=== PATIENT | male | born 1960 | race Caucasian/White ===

== ENCOUNTER 2022-07-02 07:44 | Outpatient (REF) | payer BC, SELFPAY ==
[2022-07-02 10:57] LABS: MANUAL DIFF FLAG NO
[2022-07-02 11:03] LABS: Basophils Percent Auto 0.5 % (0-2); Eosinophils Absolute Auto 0.2 X10*3/uL (0.0-0.4); Eosinophils Percent Auto 4.3 % (0-4); Hemoglobin 15.8 g/dl (14.0-18.0); Imm Gran Abs Auto 0.02 X10*3/uL (0.00-0.03); Imm Gran Pct Auto 0.4 % (0.0-0.4); Lymphocytes Absolute Auto 2.1 X10*3/uL (1.2-4.9); Mean Corpuscular HGB Conc 32.2 g/dl (31.0-36.0); Mean Corpuscular Hemoglobin 27.5 pg (27.0-33.0); Mean Corpuscular Volume 85.4 fL (80.0-98.0); Mean Platelet Volume 11.5 fL (9.4-12.4); Monocytes Absolute Auto 0.5 X10*3/uL (0.1-1.2); Monocytes Percent Auto 9.5 % (2-11); Neutrophils Absolute Auto 2.7 x10*3/uL (2.0-8.3); Neutrophils Percent Auto 47.3 % (45-73); Platelet Count 190 X10*3/uL (160-400); Red Blood Count 5.74 X10*6/uL (4.60-5.80); Red Cell Distribution Width 14.1 % (11.0-16.0); White Blood Count 5.6 X10*3/uL (4.8-10.8)
[2022-07-02 11:43] LABS: Alanine Aminotransferase 23 U/L (0-40); Albumin Level 4.6 g/dL (3.5-5.0); Alkaline Phosphatase 54 U/L (39-117); Anion Gap 12 (12-20); Aspartate Amino Transferase 21 U/L (5-37); Bilirubin Total 0.7 mg/dL (0.0-1.0); Blood Urea Nitrogen 20 mg/dL (9-16); Calcium 9.5 mg/dL (8.4-10.2); Carbon Dioxide 28 mmol/L (22-29); Chloride 107 mmol/L (96-108); Cholesterol 230 mg/dL; Estimated Glomerular Filt Rate > 60; Glucose Fasting 96 mg/dL (60-99); HDL Cholesterol 44 mg/dL; LDL Cholesterol Calculated 156 mg/dl; Potassium 4.1 mmol/L (3.3-5.1); Sodium 143 mmol/L (135-145); Total Protein 6.9 g/dL (6.5-8.0); Triglycerides 154 mg/dL
[2022-07-02 12:00] LABS: Appearance Urine Turbid; Color Urine Yellow; Glucose Urine UA Negative (Negative); Leukocyte Esterase Urine Negative (Negative); Nitrite Urine Negative (Negative); PH 5.5 (5.0-9.0); Specific Gravity - Urine 1.025 (1.005-1.025); Urine Blood Negative (Negative); Urine Ketones Negative (Negative); Urine Protein Negative (Neg-Trace)
[2022-07-02 12:01] LABS: Prostate Specific Antigen Scr 0.77 ng/mL (<0.05-4.0); TSH reflex Free T4 1.09 uIU/mL (0.32-4.0)
[2022-07-02 12:41] LABS: Creatinine Urine 280.26 mg/dL
== END 2022-07-02 07:45 | disposition home or self-care (01) ==
LOC: HO.WFDLDS 07:44
PROVIDERS: Visit Provider Family Medicine
DX: Z00.00 Encounter for general adult medical examination without abnormal findings (principal); I10 Essential (primary) hypertension; Z12.5 Encounter for screening for malignant neoplasm of prostate
CPT/HCPCS: 36415; 80053; 80061; 81003; 82043; 84153; 84443; 85025

== ENCOUNTER 2023-01-14 08:01 | Outpatient (REF) | payer BC, SELFPAY ==
[2023-01-14 12:28] LABS: Anion Gap 11 (12-20); Blood Urea Nitrogen 14 mg/dL (9-16); Calcium 9.8 mg/dL (8.4-10.2); Carbon Dioxide 28 mmol/L (22-29); Chloride 104 mmol/L (96-108); Cholesterol 199 mg/dL (<200); Estimated Glomerular Filt Rate > 60; Glucose Fasting 87 mg/dL (60-99); HDL Cholesterol 48 mg/dL (>40); LDL Cholesterol Calculated 127 mg/dL (<100); Potassium 4.2 mmol/L (3.3-5.1); Sodium 139 mmol/L (135-145); Triglycerides 123 mg/dL (<150)
== END 2023-01-14 08:02 | disposition home or self-care (01) ==
LOC: HO.WFDLDS 08:01
PROVIDERS: Visit Provider Family Medicine
DX: Z00.00 Encounter for general adult medical examination without abnormal findings (principal); E78.00 Pure hypercholesterolemia, unspecified
CPT/HCPCS: 36415; 80048; 80061

== ENCOUNTER 2023-01-21 15:25 | Outpatient (AMB) | payer BC, SELFPAY ==
[2023-01-21 15:28] VITALS: BP 122/72; PULSE 98; O2SAT 95; BMI 25.5
--- NOTE | 2023-01-21 15:28 | A.OFFPC_ITS ---
Vital Signs 01/21/23 15:28 Height 5 ft 5 in Weight 153 lb 6 oz BMI 25.5 BP 122/72 Blood Pressure Location Lt brachial Position Sitting Pulse 98 Pulse Source Pulse Oximeter Pulse Oximetry (%) 95 Oxygen Delivery Method Room Air Intake Visit Reasons: f/u hypercholesterolemia Intake Note: Patient is here to follow up on his cholesterol today. Allergies No Known Allergies Allergy (Verified 01/21/23 15:33) Tobacco use date assessed: 01/21/23 Fall risk assessment: No Falls in past year Last assessed Fall Risk: 01/21/23 Dental Screening Dental Screen Date: 01/21/23 Did you have a dental visit in the last 12 months?: Yes Did you have a dental problem in the last 6 months where you did not have access to dental care?: No Was dental information given to patient?: Patient has dentist HPI f/u hypercholesterolemia HPI Details 62 y/o male presents to f/u hyperlipidem ia. Had advised lifestyle changes. Labs were drawn 01/14/23. Reviwed labs with pt. Triglycerides improved from 154 to 123. TC 230 to 199. LDL 156 to 127. HDL 48. Pt reports he had made changes to his diet. 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 Current occupational exposures/hazards: No Cognitive needs: No Hearing needs: No Vision needs: No Questionnaire Thrive Questionnaire Date Thrive assessed: 06/30/22 MORGAN-7 AMB Questionnaire MORGAN-7 Date MORGAN - 7 assessed: 06/30/22 Source: Developed by Drs. Adrian Sullivan, Lindsey Gallo, Eduard Moreno and colleagues, with an educational mario alberto from [employer]. Physical exam (Primary Care) Vital Signs: Last Vital Signs Pulse 98 01/21/23 15:28 BP 122/72 01/21/23 15:28 Pulse Ox 95 01/21/23 15:28 Oxygen Delivery Method Room Air 01/21/23 15:28 BMI result Body Mass Index 25.5 Tobacco/Smoking Status: Tobacco use Status Tobacco use date assessed 01/21/23 01/21/23 15:36 Patient Tobacco Use Status Never used Tobacco 01/21/23 15:36 e-Cigarette/Vaping Use Never Used 01/21/23 15:36 Thrive Assessment: Date of Thrive Assessment Date Thrive assessed 06/30/22 01/21/23 15:36 Assessment and Plan Assessment & Plan (1) Hypercholesterolemia: Code(s): E78.00 - Pure hypercholesterolemia, unspecified Plan: Patient has a work on lifestyle changes and his cholesterol levels are all within normal limits. Encouraged him to continue lifestyle changes including a diet low in saturated fats and cholesterol and including exercise and weight control We can follow this (2) Screening for colon cancer: Code(s): Z12.11 - Encounter for screening for malignant neoplasm of colon Plan: Referred patient to [facility] [place] for screening for colon cancer follow- up but he was never contacted. Resubmit id referral and I have asked the office to check on the status of the referral. Orders: Orders Lipid Panel Today Z00.00 - Encounter for general adult medical examination without abnormal findings Comprehensive [place]. Panel Fast Today Z00.00 - Encounter for general adult medical examination without abnormal findings Microalbumin, Random (w Creat) Today I10 - Essential (primary) hypertension Prostate Specific Antigen Scr Today Z12.5 - Encounter for screening for malignant neoplasm of prostate UA and rflx microscopic Today Z00.00 - Encounter for general adult medical examination without abnormal findings TSH reflex Free T4 Today Z00.00 - Encounter for general adult medical examinat ion without abnormal findings Referrals Gastroenterology Referral Z12.11 - Encounter for screening for malignant neoplasm of colon Coding Level of Care Code Est Pt Level 3 (55176) Diagnoses Hypercholesterolemia E78.00 Screening for colon cancer Z12.11
== END 2023-01-21 15:57 | disposition home or self-care (01) ==
PROVIDERS: PCP Family Medicine; Visit Provider Family Medicine
DX: E78.00 Pure hypercholesterolemia, unspecified (principal); Z12.11 Encounter for screening for malignant neoplasm of colon
CPT/HCPCS: 99213

== ENCOUNTER 2023-10-21 07:38 | Outpatient (REF) | payer BC, SELFPAY ==
[2023-10-21 11:35] LABS: Appearance Urine Clear; Color Urine Yellow; Glucose Urine UA Negative (Negative); Leukocyte Esterase Urine Negative (Negative); Nitrite Urine Negative (Negative); Urine Blood Negative (Negative); Urine Ketones Negative (Negative); Urine Protein Negative (Neg-Trace)
[2023-10-21 11:50] LABS: Alanine Aminotransferase 20 U/L (0-40); Albumin Level 4.4 g/dL (3.5-5.0); Alkaline Phosphatase 58 U/L (39-117); Anion Gap 13 (12-20); Aspartate Amino Transferase 21 U/L (5-37); Bilirubin Total 0.8 mg/dL (0.0-1.0); Blood Urea Nitrogen 14 mg/dL (9-16); Calcium 9.3 mg/dL (8.4-10.2); Carbon Dioxide 28 mmol/L (22-29); Chloride 106 mmol/L (96-108); Cholesterol 201 mg/dL (<200); Estimated Glomerular Filt Rate > 60; Glucose Fasting 93 mg/dL (60-99); HDL Cholesterol 41 mg/dL (>40); LDL Cholesterol Calculated 127 mg/dL (<100); Sodium 143 mmol/L (135-145); Total Protein 7.1 g/dL (6.5-8.0); Triglycerides 165 mg/dL (<150)
[2023-10-21 11:59] LABS: Prostate Specific Antigen Scr 0.87 ng/mL (<0.05-4.0)
[2023-10-21 12:06] LABS: TSH reflex Free T4 1.26 uIU/mL (0.32-4.0)
[2023-10-21 12:11] LABS: Creatinine Urine 156.53 mg/dL; Microalbum/Creatinine Ratio Ur 4.4 ug/mg cr (<30)
== END 2023-10-21 07:39 | disposition home or self-care (01) ==
LOC: HO.WFDLDS 07:38
PROVIDERS: Visit Provider Family Medicine
DX: Z00.00 Encounter for general adult medical examination without abnormal findings (principal); I10 Essential (primary) hypertension; Z12.5 Encounter for screening for malignant neoplasm of prostate
CPT/HCPCS: 36415; 80053; 80061; 81003; 82043; 82570; 84153; 84443

== ENCOUNTER 2023-11-05 08:11 | Outpatient (AMB) | payer BC, SELFPAY ==
--- NOTE | 2023-11-05 08:14 | A.OFFPC_ITS ---
Vital Signs 11/05/23 08:19 11/05/23 09:01 Height 5 ft 4.37 in Weight 158 lb 4 oz BMI 26.8 BP 124/88 120/84 Blood Pressure Location Rt brachial Position Sitting Respiration 14 Pulse 79 Pulse Source Pulse Oximeter Temp 99 F Temp Source Oral Pulse Oximetry (%) 98 Oxygen Delivery Method Room Air Intake Visit Reasons: PE Intake Note: Physical Web Consultant Required: No Allergies No Known Allergies Allergy (Verified 11/05/23 08:14) Medication List - Last Reconciled 11/05/23 by MICAELA Cee clotrimazole-betamethasone 1-0.05 % 1 appl topical BID 2 weeks Tobacco use date assessed: 11/05/23 Fall risk assessment: No Falls in past year Last assessed Fall Risk: 11/05/23 Dental Screening Dental Screen Date: 11/05/23 Did you have a dental visit in the last 12 months?: Yes Did you have a dental problem in the last 6 months where you did not have access to dental care?: No Was dental information given to patient?: Patient has dentist HPI HPI Comments History of Present Illness Details This is a 63-year-old male with a past medical history of hypercholesterolemia presenting for his physical exam. We reviewed his lab results. He has hypercholesterolemia. LDL 127, triglycerides 165. LDL is improved from 2022 when it was 156. He did this by incorporating more fiber into his diet. We reviewed his 10 year ASCVD risk score which is elevated at 13.6%. His diastolic blood pressure was mildly elevated today at 84. We discussed a low-sodium diet and incorporating cardiovascular exercise into his routine and avoiding caffeine. He did have caffeine before this appointment. He says balanitis occasionally flares, and the topical cream prescribed by his PCP is effective. He has a consult for a screening colonoscopy scheduled in March. 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 Current occupational exposures/hazards: No Cognitive needs: No Hearing needs: No Vision needs: No Questionnaire PHQ-9 Over the last 2 weeks, how often have you been bothered by any of the following problems? 1. Little interest or pleasure in doing things: not at all 2. Feeling down, depressed, or hopeless: not at all 3. Trouble falling or staying asleep, or sleeping too much: not at all 4. Feeling tired or having little energy: not at all 5. Poor appetite or overeating: not at all 6. Feeling bad about yourself - or that you are a failure or have let yourself or your family down: not at all 7. Trouble concentrating on things, such as reading the newspaper or watching television: not at all 8. Moving or speaking so slowly that other people could have noticed. Or the opposite - being so fidgety or restless that you have been moving around a lot more than usual: not at all 9. Thoughts that you would be better off or of hurting yourself in some way: not at all Total score: 0 Depression Screening Interpretation: Negative Depression Screening Done: Yes 33814 - PHQ-9 Billing: Yes Source: Developed by Drs. Adrian Sullivan, Lindsey Gallo, Eduard Moreno and colleagues, with an educational mario alberto from [employer]. Thrive Questionnaire Date Thrive assessed: 06/30/22 I am a: Patient What is your living situation today?: I have a steady place to live Within the past 12 months, did the food you bought not last and you didn't have the money to get more?: Never true Within the past 12 months, did you worry whether your food would run out before you got money to buy more?: Never true Do you have trouble paying for medicines?: No Do you have trouble getting transportation to medical appointments?: No Do you have trouble paying your heating and electricity bill?: No Do you have trouble taking care of your child, family member or friend?: No Do you have trouble with day-to-day activities such as bathing, preparing meals, shopping, managing finances, etc.?: No Are you currently unemployed and looking for a job?: No Are you interested in more education?: No Please select the resources that you would like help with: None Currently or been in a relationship where the following occur: no concerns reported THRIVE Score: 0 AUDIT C Alcohol Use Questionnaire (AUDIT-C) 1. How often do you have a drink containing alcohol?: Monthly or less (every 3-4 months) 2. How many drinks containing alcohol do you have on a typical day when you are drinking?: 1 or 2 3. How often do you have six or more drinks on one occasion?: Never Total Score: 1 MORGAN-7 AMB Questionnaire MORGAN-7 Date MORGAN - 7 assessed: 11/05/23 Feeling nervous, anxious, or on edge: 0 = Not at all Not being able to stop or control worryin = Not at all Worrying too much about different things: 0 = Not at all Trouble relaxin = Not at all Being so restless that it is hard to sit still: 0 = Not at all Becoming easily annoyed or irritable: 0 = Not at all Feeling afraid as if something awful might happen: 0 = Not at all Total MORGAN-7 score (0-4 normal; 5-9 mild; 10-14 moderate; 15-21 severe): 0 Source: Developed by Drs. Adrian Sullivan, Lindsey Gallo, Eduard Moreno and colleagues, with an educational mario alberto from [employer]. MORGAN-7 Assessment Billing MORGAN-7 Assessment Tool: MORGAN-7 Assessment 76033 Review of Systems Const Details: Constitutional: No unexplained weight loss, fever, chills, fatigue or night sweats. Eyes: No vision changes, blurry vision, double vision, eye pain, eye redness, eye discharge. ENT: No hearing loss, sneezing, congestion, runny nose or sore throat. Respiratory: No shortness of breath, cough or sputum production. Cardiovascular: No chest pain, chest pressure or chest discomfort. No palpitations or pedal edema. Gastrointestinal: No anorexia, nausea, vomiting or diarrhea. No abdominal pain or blood in stool. Genitourinary: No dysuria, hematuria, urinary frequency. Neurologic: No persistent headache, dizziness, syncope, unilateral weakness, ataxia, numbness or tingling in the extremities. Musculoskeletal: No muscle pain, back pain, joint pain or swelling. Hematologic/Lymphatics: No bleeding or bruising. No painful lymph nodes. Skin: No itching or rashes. Endocrine: No cold or heat intolerance. No polyuria or polydipsia. Psychiatric: No depression or anxiety. No SI/HI. Physical exam (Primary Care) Vital Signs: Last Vital Signs Temp 99 F 06/21/24 08:19 Pulse 79 11/05/23 08:19 Resp 14 11/05/23 08:19 BP 120/84 11/05/23 09:01 Pulse Ox 98 11/05/23 08:19 Oxygen Delivery Method Room Air 11/05/23 08:19 BMI result Body Mass Index 26.8 Tobacco/Smoking Status: Tobacco use Status Tobacco use date assessed 11/05/23 11/05/23 08:17 Patient Tobacco Use Status Never used Tobacco 11/05/23 08:17 e-Cigarette/Vaping Use Never Used 11/05/23 08:17 PHQ-9: PHQ-9 Score PHQ-9: Total score 0 11/05/23 08:35 Depression Screening Interpretation: Negative Thrive Assessment: Date of Thrive Assessment Date Thrive assessed 06/30/22 11/05/23 08:17 Currently or been in a relationship where the following occur: no concerns reported Const Other: Constitutional: Alert, in no distress. Head: Normocephalic. Eyes: Pupils are equal, round and reactive to light. Extraocular muscles intact. Ear, Nose and Throat: Canals clear. TMs normal. Normal nasal mucosa. No nasal discharge. No oral lesions. Neck: Supple, Full range of motion. No lymphadenopathy. No palpable thyroid masses. Respiratory: Clear to auscultation. Cardiovascular: S1 S2 regular. No murmurs. No carotid bruits. Gastrointestinal: Abdomen soft, non-tender, non-distended. Normal bowel sounds. No palpable masses. Genitourinary: Patient deferred. Neurologic: No focal neurological deficits. Symmetric patellar reflexes. Moves all extremities spontaneously. Sensation intact bilaterally. Skin: There are a few dry, scaly lesions on the forearms. Musculoskeletal: No gross deformities. Normal range of motion. Extremities: Warm and well perfused. No clubbing, cyanosis or edema. 3+ peripheral pulses bilaterally. Psychiatric: Normal mood and affect Assessment and Plan Assessment & Plan (1) Annual physical exam: Code(s): Z00.00 - Encounter for general adult medical examination without abnormal findings Plan: Patient is seen today for a routine physical. As part of this visit we reviewed the following issues, which are considered and essential part of preventative health in this age group: - Screening for colon cancer - Discussed Prostate cancer screening - Blood pressure screening annually - Cholesterol screening - Nutritional and exercise counseling - Counseling of injury prevention including fire prevention, smoke alarms and seat belt usage - Screening for depression - Prevention of and/or testing for infectious diseases - Education about skin cancer - Referred to dermatology for skin exam. - Recommendations about immunizations - given Prevnar-20 in office. - Recommendation of an eye exam - Screening for substance abuse Follow up in 1 year for physical exam. (2) Hypercholesterolemia: Code(s): E78.00 - Pure hypercholesterolemia, unspecified Plan: Reviewed elevated ASCVD risk score with the patient. Recommended initiating statin to reduce cholesterol and cardiovascular risk. Discussed risks and benefits. Patient declines cholesterol lowering medication at this time. He will continue to work on lifestyle modifications were which were reviewed in detail with the patient. Orders: Orders Pneumococcal 20 Immunization Today Z23 - Encounter for immunization Referrals Dermatology Referral Z12.83 - Encounter for screening for malignant neoplasm of skin Medications: New pneumoc 20-elfego conj-dip cr(PF) 0.5 mL IM ONCE 0.5 mL 0RF Z23 - Encounter for immunization Refilled clotrimazole-betamethasone 1-0.05 % 1 appl topical BID 2 weeks 45 grams 1RF Coding Level of Care Code Est Pt Prev Care >65y(62389) Diagnoses Annual physical exam Z00.00 Hypercholesterolemia E78.00 Additional Codes MORGAN-7 Assessment Billing - MORGAN-7 Assessment Tool: MORGAN-7 Assessment 28944 ([id number])
[2023-11-05 08:19] VITALS: BP 124/88; PULSE 79; RESP 14; TEMP 37.2; O2SAT 98; BMI 26.8
[2023-11-05 09:01] VITALS: BP 120/84
== END 2023-11-05 09:10 | disposition home or self-care (01) ==
PROVIDERS: PCP Family Medicine; Visit Provider Physician Assistant Medical
DX: Z00.00 Encounter for general adult medical examination without abnormal findings (principal); E78.00 Pure hypercholesterolemia, unspecified; Z23 Encounter for immunization
CPT/HCPCS: 90471; 90677; 99397

== ENCOUNTER 2025-01-08 14:36 | Outpatient (AMB) | payer BC, SELFPAY ==
--- NOTE | 2025-01-08 14:43 | A.OFFVIS_ITS ---
Intake Vital Signs 01/08/25 14:46 Height 5 ft 5 in Weight 158 lb BMI 26.3 BP 142/78 H Blood Pressure Location Lt brachial Position Sitting Respiration 13 Pulse 86 Pulse Source Pulse Oximeter Temp 97 F Temp Source Oral Pulse Oximetry (%) 96 Oxygen Delivery Method Room Air Intake Visit Reasons: Physical / Dr. Dimas pt. 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 Current occupational exposures/hazards: No Cognitive needs: No Hearing needs: No Vision needs: No Questionnaire PHQ-9 Over the last 2 weeks, how often have you been bothered by any of the following problems? 1. Little interest or pleasure in doing things: not at all 2. Feeling down, depressed, or hopeless: not at all 3. Trouble falling or staying asleep, or sleeping too much: not at all 4. Feeling tired or having little energy: not at all 5. Poor appetite or overeating: not at all 6. Feeling bad about yourself - or that you are a failure or have let yourself or your family down: not at all 7. Trouble concentrating on things, such as reading the newspaper or watching television: not at all 8. Moving or speaking so slowly that other people could have noticed. Or the opposite - being so fidgety or restless that you have been moving around a lot more than usual: not at all 9. Thoughts that you would be better off or of hurting yourself in some way: not at all Total score: 0 Depression Screening Interpretation: Negative Depression Screening Done: Yes 62424 - PHQ-9 Billing: Yes Source: Developed by Drs. Adrian Sullivan, Lindsey Gallo, Eduard Moreno and colleagues, with an educational mario alberto from [employer]. Physical Exam Vital Signs: Last Vital Signs Temp 97 F 01/08/25 14:46 Pulse 86 01/08/25 14:46 Resp 13 01/08/25 14:46 BP 142/78 H 01/08/25 14:46 Pulse Ox 96 01/08/25 14:46 Oxygen Delivery Method Room Air 01/08/25 14:46 BMI result Body Mass Index 26.3 Quality Reporting (2019) Depression/Bipolar (159/160/161/177) PHQ-9: Total score: 0 Coding Additional Codes PHQ-9 - 40272 - PHQ-9 Billing: Yes ([id number])
[2025-01-08 14:46] VITALS: BP 142/78; PULSE 86; RESP 13; TEMP 36.1; O2SAT 96; BMI 26.3
--- NOTE | 2025-01-08 15:00 | A.OFFPC_ITS ---
Vital Signs 01/08/25 14:46 01/08/25 15:14 Height 5 ft 5 in Weight 158 lb BMI 26.3 BP 142/78 H 128/58 L Blood Pressure Location Lt brachial Lt brachial Position Sitting Sitting Respiration 13 Pulse 86 Pulse Source Pulse Oximeter Temp 97 F Temp Source Oral Pulse Oximetry (%) 96 Oxygen Delivery Method Room Air Intake Visit Reasons: Physical / Dr. Dimas ptDeb Allergies No Known Allergies Allergy (Verified 01/08/25 14:59) Medication List - Last Reconciled 01/08/25 by Ivania Nj, [facility] clotrimazole-betamethasone 1-0.05 % 1 appl topical BID 2 weeks Tobacco use date assessed: 11/05/23 Dental Screening Dental Screen Date: 11/05/23 HPI HPI Comments History of Present Illness Details 64 y/o M with HLD, balanitis Fhx: No changes Surgery: No changes Health Maintenance: Colon [facility] ____hoping to have this done 01/2025, advised if this doesnt work out will order cologuard Tdap admin today Specialists: Derm; only went one time. Cleared from Optho wears glasses, last exam May 2024 History of Present Illness - The patient is a 64-year-old male pres enting for CPE - c/o sore spot on testicle, feels like pressure, worse w/ tight clothes; started w few months ago w/o any other assoc sx - No skin changes, no pain on testing, n o STDs - HLD not on meds, due for labs Social History - Employment: Patient is currently worki [employer] but anticipates longterm, experiencing stress due to delays in company takeover. - Receives care through a patient portal . - Current medications: Occasional use of a topical cream. - Recent eye examination in May, sta rted using new glasses. Health Maintenance - Tetanus booster due; last recorded mor e than 10 years ago. - Routine labs pending, reminded patient to send message via the portal if the colonoscopy rescheduling fails. - Cologuard option, pending other screen ing results. - Pneumococcal vaccination received last year. - Blood pressure management as previous readings indicate elevated levels. - Upcoming labs and tetanus shot schedul ed for today alongside wellness instructions to follow. Review of Systems - Genitourinary: Reports difficulty find ing left testicle, soreness noticed; denies STDs. - Cardiovascular: Reports history of kristine vated blood pressure. - Gastrointestinal: Discussed past compl ication with colonoscopy; pending follow-up or alternative screen. - Integumentary: Denies skin changes, re cent dermatology visit noted presence of small white spots due to aging. - Musculoskeletal: Last eye exam in [place] sw[place] with new glasses; no major changes in vision. - Neurological: Reports concerns with st ress associated with employment status change. Physical Exam General: Well developed, well nourished, in no acute distress. Appears stated age. Head: Normocephalic, atraumatic. Eyes: Pupils are equal, round and reactive to light and accommodation. Conjunctivae are clear. Vision grossly normal. Ears: TMs clear AU, EACS WNL Nose: Patent, without discharge. Neck: Supple, no adenopathy or thyromegaly. Breast: Edu on SBE Lungs: Clear to auscultation bilaterally. No rales, rhonchi or wheeze noted. Good air flow in all santos. Heart: Regular rate and rhythm. No murmurs, click, rubs or gallops are noted. Abdomen: Bowel sounds present in all quadrants. The abdomen is soft, nontender, with no masses or organomegaly noted. No hernias are noted. : Deferred. Reviewed JANE & recommendations, varicocele appreciated; no testicular mass. Offered and declined mechanical manager. Pulses: Peripheral pulses are equal and palpable bilaterally. Extremities: No clubbing, cyanosis nor edema is noted. Neurologic: Gait and station normal. Cranial Nerves 2-12 intact. Motor strength grossly symmetrical and intact. No sensory loss. Balance normal. Skin: No rashes, ulcers, or lesions noted. Turgor is good. Skin color is good. Hair and nails are without abnormalities. Psych: Normal eye contact, affect and mood appropriate, and normal interactions. Patient is alert and appropriate to context. Results Pending Discussion Notes I discussed the findings of presumed varicocele with the patient, including the need for a confirmatory ultrasound. The likelihood of benign swelling due to varicosities in the scrotum was explained. The absence of alarming skin lesions was emphasized, recommending ultrasound to assess the extent and need for potential intervention. The necessity of routine blood work and administrating a tetanus booster was confirmed. I advised rescheduling for either colonoscopy or Cologuard test, informed the patient of next steps, and utility of patient portal for queries. Chcf-related stress was discussed briefly. Guided on blood pressure management and further monitoring before deciding any therapeutic changes. Patient was advised on following my arranged schedule for laboratory, ultrasound, and tetanus shot. Patient was given time to ask questions. All questions were answered to their satisfaction. Plan Scrotal US Labs today Tdap admin Colorectal screening RTO 2-3 weeks to review labs and US results, then 1 year CPE Patient Instructions - Proceed with labs and tetanus shot as scheduled today. - Await ultrasound for scrotal evaluatio n; - Contact via patient portal if no confi rmation from colonoscopy appointment by January. I can order Cologaurd at that time, if needed. - Maintain current topical treatments fo r the skin as needed. - Follow dietary advice for managing lip ids and monitor cholesterol levels. - Schedule telehealth appt to review lab s and Ultrasound - CPE in 1 year Consent Patient was informed and verbally consented to the use of an ambient scribe for clinic note documentation during this visit. [facility] Social History Housing: House Patient Tobacco Use Status: Never used Tobacco e-Cigarette/Vaping Use: Never Used Second Hand Smoke Exposure: No service: No Current occupational status: employed Current occupation: [employer] in [employer]. Current occupational exposures/hazards: No Cognitive needs: No Hearing needs: No Vision needs: No Questionnaire PHQ-9 Over the last 2 weeks, how often have you been bothered by any of the following problems? 1. Little interest or pleasure in doing things: not at all 2. Feeling down, depressed, or hopeless: not at all 3. Trouble falling or staying asleep, or sleeping too much: not at all 4. Feeling tired or having little energy: not at all 5. Poor appetite or overeating: not at all 6. Feeling bad about yourself - or that you are a failure or have let yourself or your family down: not at all 7. Trouble concentrating on things, such as reading the newspaper or watching television: not at all 8. Moving or speaking so slowly that other people could have noticed. Or the opposite - being so fidgety or restless that you have been moving around a lot more than usual: not at all 9. Thoughts that you would be better off or of hurting yourself in some way: not at all Total score: 0 Depression Screening Interpretation: Negative Depression Screening Done: Yes 31321 - PHQ-9 Billing: Yes Source: Developed by Drs. Adrian Sullivan, Lindsey Gallo, Eduard Moreno and colleagues, with an educational mario alberto from [employer]. Thrive Questionnaire Date Thrive assessed: 01/08/25 I am a: Parent/Caregiver What is your living situation today?: I have a steady place to live Within the past 12 months, did the food you bought not last and you didn't have the money to get more?: Never true Within the past 12 months, did you worry whether your food would run out before you got money to buy more?: Never true Do you have trouble paying for medicines?: No Do you have trouble getting transportation to medical appointments?: No Do you have trouble paying your heating and electricity bill?: No Do you have trouble taking care of your child, family member or friend?: No Do you have trouble with day-to-day activities such as bathing, preparing meals, shopping, managing finances, etc.?: No Are you currently unemployed and looking for a job?: No Are you interested in more education?: No Please select the resources that you would like help with: None Currently or been in a relationship where the following occur: No concerns reported THRIVE Score: 0 AUDIT C Alcohol Use Questionnaire (AUDIT-C) 1. How often do you have a drink containing alcohol?: Never 2. How many drinks containing alcohol do you have on a typical day when you are drinking?: 1 or 2 3. How often do you have six or more drinks on one occasion?: Never Total Score: 0 MORGAN-7 AMB Questionnaire MORGAN-7 Date MORGAN - 7 assessed: 01/08/25 Feeling nervous, anxious, or on edge: 0 = Not at all Not being able to stop or control worryin = Not at all Worrying too much about different things: 0 = Not at all Trouble relaxin = Not at all Being so restless that it is hard to sit still: 0 = Not at all Becoming easily annoyed or irritable: 0 = Not at all Feeling afraid as if something awful might happen: 0 = Not at all Total MORGAN-7 score (0-4 normal; 5-9 mild; 10-14 moderate; 15-21 severe): 0 Source: Developed by Drs. Adrian Sullivan, Lindsey Gallo, Eduard Moreno and colleagues, with an educational mario alberto from [employer]. MORGAN-7 Assessment Billing MORGAN-7 Assessment Tool: MORGAN-7 Assessment 92039 Physical exam (Primary Care) Vital Signs: Last Vital Signs Temp 97 F 01/08/25 14:46 Pulse 86 01/08/25 14:46 Resp 13 01/08/25 14:46 BP 128/58 L 01/08/25 15:14 Pulse Ox 96 01/08/25 14:46 Oxygen Delivery Method Room Air 01/08/25 14:46 BMI result Body Mass Index 26.3 Tobacco/Smoking Status: Tobacco use Status Tobacco use date assessed 11/05/23 01/08/25 15:03 Patient Tobacco Use Status Never used Tobacco 01/08/25 15:03 e-Cigarette/Vaping Use Never Used 01/08/25 15:03 PHQ-9: PHQ-9 Score PHQ-9: Total score 0 01/08/25 15:03 Depression Screening Interpretation: Negative Thrive Assessment: Date of Thrive Assessment Date Thrive assessed 01/08/25 01/08/25 15:03 Currently or been in a relationship where the following occur: No concerns reported Coding Level of Care Code Est Pt Prev Care >65y(65216) Diagnoses Adult general medical exam Z00.00 Hypercholesterolemia E78.00 Laboratory exam ordered as part of routine general medical examination Z00.00 Need for Tdap vaccination Z23 Left testicular pain N50.812 Additional Codes PHQ-9 - 08922 - PHQ-9 Billing: Yes ([id number]) MORGAN-7 Assessment Billing - MORGAN-7 Assessment Tool: MORGAN-7 Assessment [id number] ([id number]) Assessment & Plan Assessment & Plan (1) Adult general medical exam: Onset Date: ~01/08/25 Code(s): Z00.00 - Encounter for general adult medical examination without abnormal findings Category: Medical (2) Hypercholesterolemia: Code(s): E78.00 - Pure hypercholesterolemia, unspecified Category: Medical (3) Laboratory exam ordered as part of routine general medical examination: Code(s): Z00.00 - Encounter for general adult medical examination without abnormal findings Category: Medical (4) Need for Tdap vaccination: Code(s): Z23 - Encounter for immunization Category: Medical (5) Left testicular pain: Code(s): N50.812 - Left testicular pain Category: Medical Plan . Orders: Orders TDaP Immunization Today Z23 - Encounter for immunization Hemoglobin A1c Today Z00.00 - Encounter for general adult medical examination without abnormal findings Lipid Panel Today Z00.00 - Encounter for general adult medical examination without abnormal findings Vitamin D 25-OH Total Today Z00.00 - Encounter for general adult medical examination without abnormal findings US scrotum Today N50.812 - Left testicular pain Complete Blood Count no Diff Today Z00.00 - Encounter for general adult medical examination without abnormal findings Comprehensive Met. Panel Today Z00.00 - Encounter for general adult medical examination without abnormal findings Microalbumin, Random (w Creat) Today Z00.00 - Encounter for general adult medical examination without abnormal findings Prostate Specific Antigen Scr Today Z00.00 - Encounter for general adult medical examination without abnormal findings TSH reflex Free T4 Today Z00.00 - Encounter for general adult medical examination without abnormal findings Vitamin B12 and Folate Today Z00.00 - Encounter for general adult medical examination without abnormal findings Medications: New Boostrix Tdap (diphth,pertus(acell),tetanus) 0.5 mL IM ONCE 0.5 mL 0RF NS Z23 - Encounter for immunization Patient Instructions: Patient Instructions - Proceed with labs and tetanus shot as scheduled today. - Await ultrasound for scrotal evaluation; - Contact via patient portal if no confirmation from colonoscopy appointment by January. I can order Cologaurd at that time, if needed. - Maintain current topical treatments for the skin as needed. - Follow dietary advice for managing lipids and monitor cholesterol levels. - Schedule telehealth appt to review labs and Ultrasound - CPE in 1 year Health screenings for men You should visit your health care provider regularly, even if you feel healthy. The purpose of these visits is to: Screen for medical issues Assess your risk for future medical problems Encourage a healthy lifestyle Update vaccinations and other preventive care services Help you get to know your provider in case of an illness Information Even if you feel fine, you should still see your provider for regular checkups. These visits can help you avoid problems in the future. For example, the only way to find out if you have high blood pressure is to have it checked regularly. High blood sugar and high cholesterol level also may not have any symptoms in the early stages. Simple blood tests can check for these conditions. There are specific times when you should see your provider or receive specific health screenings. The [place] Preventive Services Task Force publishes a list of recommended screenings. Below are screening guidelines for men ages 40 to 64. BLOOD PRESSURE SCREENING Have your blood pressure checked at least once every year. Watch for blood pressure screenings in your area. Ask your provider if you can stop in to have your blood pressure checked. Ask your provider if you need your blood pressure checked more often if: You have diabetes, heart disease, kidney problems, or are overweight or have certain other health conditions You have a first-degree relative with high blood pressure You are Black Your blood pressure top number is from 120 to 129 mm Hg, or the bottom number is from 70 to 79 mm Hg If the top number is 130 mm Hg or greater or the bottom number is 80 mm Hg or greater, this is considered stage 1 hypertension. Schedule an appointment with your provider to learn how you can lower your blood pressure. Effects of age on blood pressure CHOLESTEROL SCREENING Cholesterol screening should begin at age 35 for men with no known risk factors for coronary heart disease. Repeat cholesterol screening should take place: Every 5 years for men with normal cholesterol levels More often if changes occur in lifestyle (including weight gain and diet) More often if you have diabetes, heart disease, kidney problems, or certain other conditions COLORECTAL CANCER SCREENING If you are under age 45, talk to your provider about getting screened. You may need to be screened if you have a strong family history of colon cancer or polyps. Screening may also be considered if you have risk factors such as a history of inflammatory bowel disease or polyps. If you are age 45 to 75, you should be screened for colorectal cancer. There are several screening tests available: A stool-based fecal occult blood (gFOBT) or fecal immunochemical test (FIT) every year A stool sDNA test every 1 to 3 years Flexible sigmoidoscopy every 5 years or every 10 years with stool testing FIT done every year CT colonography (virtual colonoscopy) every 5 years Colonoscopy every 10 years You may need a colonoscopy more often if you have risk factors for colorectal cancer, such as: Ulcerative colitis A personal or family history of colorectal cancer A history of growths in your colon called adenomatous polyps DENTAL EXAM Go to the dentist once or twice every year for an exam and cleaning. Your dentist will evaluate if you have a need for more frequent visits. DIABETES SCREENING All adults who do not have risk factors for diabetes should be screened starting at age 35 and repeated every 3 years. If you have other risk factors for diabetes, such as a first degree relative with diabetes, overweight or obesity, high blood pressure, prediabetes, or a history of heart disease, you may be tested more often. If you are overweight and have other risk factors, such as high blood pressure and are planning to become , screening is recommended. EYE EXAM Have an eye exam every 2 to 4 years ages 40 to 54 and every 1 to 3 years ages 55 to 64. Your provider may recommend more frequent eye exams if you have vision problems or glaucoma risk. Have an eye exam that includes an examination of your retina (back of your eye) at least every year if you have diabetes. IMMUNIZATIONS Commonly needed vaccines include: Flu shot: get one every year COVID-19 vaccine: ask your provider what is best for you Tetanus-diphtheria and acellular pertussis (Tdap) vaccine: have as one of your tetanus-diphtheria vaccines if you did not receive it as an adolescent Tetanus-diphtheria: have a booster (or Tdap) every 10 years Varicella vaccine: receive 2 doses if you never had chickenpox or the varicella vaccine and were born in 1979 or after Hepatitis B vaccine: receive 2, 3, or 4 doses, depending on your exact circumstances, if you did not receive these as a child or adolescent, until age 59 Shingles (herpes zoster) vaccine: at or after age 50 Ask your provider if you should receive other immunizations, especially if you have certain medical conditions, such as diabetes or are at increased risk for some diseases such as pneumonia. INFECTIOUS DISEASE SCREENING Screening for hepatitis C: all adults ages 18 to 79 should get a one-time test for hepatitis C. Screening for human immunodeficiency virus (HIV): all people ages 15 to 65 should get a one-time test for HIV. Depending on your lifestyle and medical history, you may need to be screened for infections such as syphilis, chlamydia, and other infections. LUNG CANCER SCREENING You should have an annual screening for lung cancer with low-dose computed tomography (LDCT) if: You are age 50 to 80 years AND You have a 20 pack-year smoking history AND You currently smoke or have quit within the past 15 years OSTEOPOROSIS SCREENING If you are age 50 to 64 and have risk factors for osteoporosis, you should discuss screening with your provider. Risk factors can include long-term steroid use, low body weight, smoking, heavy alcohol use, having a fracture after age 50, or a family history of hip fracture or osteoporosis. Osteoporosis PHYSICAL EXAM All adults should visit their provider from time to time, even if they are healthy. The purpose of these visits is to: Screen for diseases Assess risk of future medical problems Encourage a healthy lifestyle Update vaccinations and other preventive care services Maintain a relationship with a provider in case of an illness Your height, weight, and body mass index (BMI) should be checked at every exam. During your exam, your provider may ask you about: Depression and anxiety Diet and exercise Alcohol and tobacco use Safety, such as use of seat belts and smoke detectors Your medicines and risk for interactions PROSTATE CANCER SCREENING If you're 55 through 69 years old, before having the test, talk to your provider about the pros and cons of having a PSA test. Ask about: Whether screening decreases your chance of dying from prostate cancer. Whether there is any harm from prostate cancer screening, such as side effects from testing or overtreatment of cancer when discovered. Whether you have a higher risk of prostate cancer than others. If you are age 55 or younger, screening is not generally recommended. You should talk with your provider about if you have a higher risk for prostate cancer. Risk factors include: Having a family history of prostate cancer (especially a brother or father) Being If you choose to be tested, the PSA blood test is repeated over time (yearly or less often), though the best frequency is not known. Prostate examinations are no longer routinely done on men with no symptoms. Prostate cancer SKIN EXAM Your provider may check your skin for signs of skin cancer, especially if you're at high risk. People at high risk include those who have had skin cancer before, have close relatives with skin cancer, or have a weakened immune system. TESTICULAR EXAM The [place] Preventive Services Task Force (USPSTF) now recommends against performing testicular self-exams. Doing testicular self-exams has been shown to have little to no benefit.
[2025-01-08 15:14] VITALS: BP 128/58
== END 2025-01-08 15:35 | disposition home or self-care (01) ==
LOC: HO.HMCFM 14:40
PROVIDERS: PCP Nurse Practitioner Family; Visit Provider Nurse Practitioner Family
DX: Z00.00 Encounter for general adult medical examination without abnormal findings (principal); E78.00 Pure hypercholesterolemia, unspecified; Z23 Encounter for immunization; N50.812 Left testicular pain

== ENCOUNTER 2025-01-08 14:36 | Outpatient (REF) | payer BC, SELFPAY ==
[2025-01-08 17:32] LABS: Hematocrit 46.1 % (42.0-52.0); Hemoglobin 15.5 g/dl (14.0-18.0); Mean Corpuscular HGB Conc 33.6 g/dl (31.0-36.0); Mean Corpuscular Hemoglobin 28.1 pg (27.0-33.0); Mean Corpuscular Volume 83.7 fL (80.0-98.0); NRBC Abs Auto 0.000 X10*3/uL (0.0-0.012); NRBC Pct Auto 0.0 /100WBC (0.0-0.2); Platelet Count 173 X10*3/uL (160-400); Red Blood Count 5.51 X10*6/uL (4.60-5.80); White Blood Count 5.2 X10*3/uL (4.8-10.8)
[2025-01-08 17:46] LABS: Total Hemoglobin (HGBA1C) 4025.0634 umol/L
[2025-01-08 17:56] LABS: Alanine Aminotransferase 31 U/L (0-40); Albumin Level 4.7 g/dL (3.5-5.0); Alkaline Phosphatase 58 U/L (39-117); Anion Gap 13 (12-20); Aspartate Amino Transferase 37 U/L (5-37); Blood Urea Nitrogen 17 mg/dL (9-16); Calcium 9.8 mg/dL (8.4-10.2); Carbon Dioxide 27 mmol/L (22-29); Chloride 104 mmol/L (96-108); Cholesterol 207 mg/dL (<200); Estimated Glomerular Filt Rate > 60; HDL Cholesterol 45 mg/dL (>40); Potassium 3.8 mmol/L (3.3-5.1); Sodium 140 mmol/L (135-145); Total Protein 7.0 g/dL (6.5-8.0); Triglycerides 187 mg/dL (<150)
[2025-01-08 18:31] LABS: Microalbum/Creatinine Ratio Ur 3.9 ug/mg cr (<30)
[2025-01-08 18:31] LABS: Folate 7.9 ng/mL (> or = 4.0); Vitamin B12 319 pg/mL (200-900)
== END 2025-01-08 14:37 | disposition home or self-care (01) ==
LOC: HO.WFDLDS 14:36
PROVIDERS: PCP Nurse Practitioner Family; Visit Provider Nurse Practitioner Family
DX: Z00.00 Encounter for general adult medical examination without abnormal findings (principal); Z23 Encounter for immunization; E78.00 Pure hypercholesterolemia, unspecified; N50.812 Left testicular pain
CPT/HCPCS: 36415; 80053; 80061; 82043; 82306; 82570; 82607; 82746; 83036; 84153; 84443; 85027; 90471; 90715; 96127

== ENCOUNTER 2025-02-02 08:49 | Outpatient (AMB) | payer BC, SELFPAY ==
--- NOTE | 2025-02-02 09:00 | A.OFFPC_ITS ---
Vital Signs 3 02/02/25 09:03 Height 5 ft 5 in Weight 153 lb BMI 25.5 BP 102/66 Blood Pressure Location Rt brachial Position Sitting Respiration 12 Pulse 65 Pulse Source Pulse Oximeter Temp 97.2 F Temp Source Oral Pulse Oximetry (%) 99 Oxygen Delivery Method Room Air Intake Visit Reasons: 2-3 weeks w me review labs Intake Note: Follow up to review labs Housing Management Officer Required: No Allergies No Known Allergies Allergy (Verified 02/02/25 09:07) Tobacco use date assessed: 02/02/25 Fall risk assessment: No Falls in past year Last assessed Fall Risk: 02/02/25 Dental Screening Dental Screen Date: 02/02/25 Did you have a dental visit in the last 12 months?: Yes Did you have a dental problem in the last 6 months where you did not have access to dental care?: No Was dental information given to patient?: Patient has dentist HPI HPI Comments 2 History of Present Illness0 Details 64 y/o M with HLD, balanitis, prediabete s History of Present Illness The patient is a 64-year-old male presenting with follow-up for review of labs . Elevated LDL Cholesterol: - Historical LDL fluctuation: 156 mg/dL (early 2022) to 125 mg/dL (2024). - Improvement due to initial diet and ex ercise modification. - Current healthy diet and regular exerc ise. - intentional wt loss Prediabetes: - Blood sugars and A1c suggest prediabet es. - random blood sugar at 144 mg/dL. - Lifestyle changes credited with tempor shree improvement. Lifestyle Considerations: - Initially increased nuts and apple int riri, exercised moderately. - Corrected unhealthy habits to include pistachios, fruits, regular walking. Review of Systems - Cardiovascular: Reports no new symptom s. Denies chest pain or palpitations. - Endocrine: Reports ongoing dietary luda nges impacting glucose readings. Denies polyuria or polydipsia. - Musculoskeletal: Reports increased act ivity with regular walking. Physical Exam General: Well developed, well nourished, in no acute distress. Appears stated age. Head: Normocephalic, atraumatic. Eyes: Pupils are equal, round and reactive to light and accommodation. Conjunctivae are clear. Vision grossly normal. Lungs: Clear to auscultation bilaterally. No rales, rhonchi or wheeze noted. Good air flow in all santos. Heart: Regular rate and rhythm. No murmurs, click, rubs or gallops are noted. Pulses: Peripheral pulses are equal and palpable bilaterally. Extremities: No clubbing, cyanosis nor edema is noted. Psych: Mood and affect appropriate. Results - Labs: - LDL cholesterol: Progressive r eduction from 156 mg/dL to 125 mg/dL. - Blood Sugar: Unfasted reading 144 mg/d L; A1c in the prediabetic range. Discussion Notes I discussed the significance of the patient's current LDL cholesterol and blood sugar levels. Emphasized the importance of ongoing lifestyle modification, including diet and exercise, to manage these conditions. Discussed the role of dietary fiber in lowering cholesterol and blood sugar, recommending OTC fiber supplements like Benefiber. Reviewed that medications for cholesterol do not remove existing plaque but prevent further deposits. On the long-term risk with age, I explained the use of the [place] Risk Score, which estimates a 10.1% risk of [place] or over the next 10 years with current values. Agreed on not starting medications currently, given the patient's preference to manage without pharmacotherapy. Concluded with advising another lab evaluation in one year to allow time for sustained lifestyle improvements and scheduling was advised as close to annual physical as feasible. Encouraged maintaining 80/20 rule for dietary discretion with 80% adherence to healthy choices. Patient was given time to ask questions. All questions were answered to their satisfaction. Assessment and Plan 1. Elevated LDL Cholesterol - Continue diet/exercise, add Benefiber, follow-up labs in one year. 2. Prediabetes - Maintain lifestyle mod, follow-up A1c in one year. 3. Lifestyle Considerations - Continue healthy snacking Patient Instructions - Keep eating fruits, nuts, and reduce j unk food. - Walk daily; aim for at least one mile most days. - Use Benefiber to help lower cholestero l and blood sugar levels. - Schedule next blood test before your a ppointment next year. Consent Patient was informed and verbally consented to the use of an ambient scribe for clinic note documentation during this visit. Total time spent caring for the patient today was 30 minutes. This includes time spent before the visit reviewing the chart, time spent during the visit, and time spent after the visit on documentation, reviewing laboratory results, diagnostic imaging, medications, performing a medically necessary evaluation, counseling on diagnoses, care coordination, ordering appropriate tests, ordering appropriate medications, review of tests performed by other providers, reporting test results with the patient, communication with other healthcare providers. 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 Current occupational exposures/hazards: No Cognitive needs: No Hearing needs: No Vision needs: No Questionnaire PHQ-9 Over the last 2 weeks, how often have you been bothered by any of the following problems? 1. Little interest or pleasure in doing things: not at all 2. Feeling down, depressed, or hopeless: not at all 3. Trouble falling or staying asleep, or sleeping too much: not at all 4. Feeling tired or having little energy: not at all 5. Poor appetite or overeating: not at all 6. Feeling bad about yourself - or that you are a failure or have let yourself or your family down: not at all 7. Trouble concentrating on things, such as reading the newspaper or watching television: not at all 8. Moving or speaking so slowly that other people could have noticed. Or the opposite - being so fidgety or restless that you have been moving around a lot more than usual: not at all 9. Thoughts that you would be better off or of hurting yourself in some way: not at all Total score: 0 Depression Screening Interpretation: Negative Depression Screening Done: Yes 53885 - PHQ-9 Billing: Yes Source: Developed by Drs. Adrian Sullivan, Lindsey Gallo, Eduard Moreno and colleagues, with an educational mario alberto from [employer]. Thrive Questionnaire Date Thrive assessed: 02/02/25 I am a: Patient What is your living situation today?: I have a steady place to live Within the past 12 months, did the food you bought not last and you didn't have the money to get more?: Never true Within the past 12 months, did you worry whether your food would run out before you got money to buy more?: Never true Do you have trouble paying for medicines?: No Do you have trouble getting transportation to medical appointments?: No Do you have trouble paying your heating and electricity bill?: No Do you have trouble taking care of your child, family member or friend?: No Do you have trouble with day-to-day activities such as bathing, preparing meals, shopping, managing finances, etc.?: No Are you currently unemployed and looking for a job?: No Are you interested in more education?: No Please select the resources that you would like help with: None Currently or been in a relationship where the following occur: No concerns reported THRIVE Score: 0 AUDIT C Alcohol Use Questionnaire (AUDIT-C) 1. How often do you have a drink containing alcohol?: Monthly or less Total Score: 1 MORGAN-7 AMB Questionnaire MORGAN-7 Date MORGAN - 7 assessed: 02/02/25 Feeling nervous, anxious, or on edge: 0 = Not at all Not being able to stop or control worryin = Not at all Worrying too much about different things: 0 = Not at all Trouble relaxin = Not at all Being so restless that it is hard to sit still: 0 = Not at all Becoming easily annoyed or irritable: 0 = Not at all Feeling afraid as if something awful might happen: 0 = Not at all Total MORGAN-7 score (0-4 normal; 5-9 mild; 10-14 moderate; 15-21 severe): 0 Source: Developed by Drs. Adrian Sullivan, Lindsey Gallo, Eduard Moreno and colleagues, with an educational mario alberto from [employer]. MORGAN-7 Assessment Billing MORGAN-7 Assessment Tool: MORGAN-7 Assessment 24260 Physical exam (Primary Care) Vital Signs: Last Vital Signs Temp 97.2 F 02/02/25 09:03 Pulse 65 02/02/25 09:03 Resp 12 02/02/25 09:03 BP 102/66 02/02/25 09:03 Pulse Ox 99 02/02/25 09:03 Oxygen Delivery Method Room Air 02/02/25 09:03 BMI result Body Mass Index 25.5 Tobacco/Smoking Status: Tobacco use Status Tobacco use date assessed 02/02/25 02/02/25 09:03 Patient Tobacco Use Status Never used Tobacco 02/02/25 09:03 e-Cigarette/Vaping Use Never Used 02/02/25 09:03 PHQ-9: PHQ-9 Score PHQ-9: Total score 0 02/02/25 09:03 Depression Screening Interpretation: Negative Thrive Assessment: Date of Thrive Assessment Date Thrive assessed 02/02/25 02/02/25 09:03 Currently or been in a relationship where the following occur: No concerns reported Results Reviewed Results Reviewed: You should also limit foods with cholesterol, which are found in animal products like liver, egg yolks, and whole milk dairy products. Laboratory Result Units Range Interpretation Provider Comments White Blood Count 5.2 X10*3/uL (4.8-10.8) Red Blood Count 5.51 X10*6/uL (4.60-5.80) Hemoglobin 15.5 g/dl (14.0-18.0) Hematocrit 46.1 % (42.0-52.0) Mean Corpuscular Volume 83.7 fL (80.0-98.0) Mean Corpuscular Hemoglobin 28.1 pg (27.0-33.0) Mean Corpuscular Hemoglobin Concent 33.6 g/dl (31.0-36.0) Red Cell Distribution Width 13.8 % (11.0-16.0) Platelet Count 173 X10*3/uL (160-400) Mean Platelet Volume 11.3 fL (9.4-12.4) Nucleated RBC Absolute Count (auto) 0.000 X10*3/uL (0.0-0.012) Nucleated Red Blood Cells % (auto) 0.0 /100WBC (0.0-0.2) Sodium Level 140 mmol/L (135-145) Potassium Level 3.8 mmol/L (3.3-5.1) Chloride Level 104 mmol/L (96-108) Carbon Dioxide Level 27 mmol/L (22-29) Anion Gap 13 (12-20) Blood Urea Nitrogen 17 mg/dL (9-16) High Creatinine 1.08 mg/dL (0.5-1.4) Estimated Creatinine Clearance Calc Not Reportable Estimat Glomerular Filtration Rate > 60 Random Glucose 144 mg/dL (60-115) High Estimated Average Glucose 117 mg/dL Hemoglobin A1c Percent 5.7 % (<6.0) Calcium Level 9.8 mg/dL (8.4-10.2) Total Bilirubin 0.4 mg/dL (0.0-1.0) Aspartate Amino Transf (AST/SGOT) 37 U/L (5-37) Alanine Aminotransferase (ALT/SGPT) 31 U/L (0-40) Alkaline Phosphatase 58 U/L (39-117) Total Protein 7.0 g/dL (6.5-8.0) Albumin 4.7 g/dL (3.5-5.0) Triglycerides Level 187 mg/dL (<150) High Cholesterol Level 207 mg/dL (<200) High LDL Cholesterol, Calculated 125 mg/dL (<100) High HDL Cholesterol 45 mg/dL (>40) Prostate Specific Antigen Screen 1.42 ng/mL (<0.05-4.0) Vitamin B12 Level 319 pg/mL (200-900) 25-Hydroxy Vitamin D Total 37.8 ng/mL (>30) Folate 7.9 ng/mL (> or = 4.0) Thyroid Stimulating Hormone (TSH) 1.26 uIU/mL (0.32-4.0) Urine Creatinine 127.78 mg/dL Urine Microalbumin 5.0 mg/L Urine Microalbumin/Creatinine Ratio 3.9 ug/mg cr (<30) Coding Level of Care Code Est Pt Level 4 (22681) Complex EM visit Add On G2211 Diagnoses Hypercholesterolemia E78.00 Prediabetes R73.03 [place] cardiac risk 10-20% in next 10 years Z91.89 Additional Codes MORGAN-7 Assessment Billing - MORGAN-7 Assessment Tool: MROGAN-7 Assessment 85194 ([id number]) PHQ-9 - 97276 - PHQ-9 Billing: Yes ([id number]) Assessment & Plan Assessment & Plan (1) Hypercholesterolemia: Code(s): E78.00 - Pure hypercholesterolemia, unspecified Category: Medical (2) Prediabetes: Code(s): R73.03 - Prediabetes Category: Medical (3) [place] cardiac risk 10-20% in next 10 years: Code(s): Z91.89 - Other specified personal risk factors, not elsewhere classified Category: Medical Plan . Orders: Orders 2 Hemoglobin A1c 1 Year E78.00 - Pure hypercholesterolemia, unspecified, R73.03 - Prediabetes Complete Blood Count no Diff 1 Year E78.00 - Pure hypercholesterolemia, unspecified, R73.03 - Prediabetes Lipid Panel 1 Year E78.00 - Pure hypercholesterolemia, unspecified, R73.03 - Prediabetes PSA, Ultra Sensitive 1 Year E78.00 - Pure hypercholesterolemia, unspecified, R73.03 - Prediabetes TSH reflex Free T4 1 Year E78.00 - Pure hypercholesterolemia, unspecified, R73.03 - Prediabetes Vitamin B12 and Folate 1 Year E78.00 - Pure hypercholesterolemia, unspecified, R73.03 - Prediabetes Vitamin D 25-OH Total 1 Year E78.00 - Pure hypercholesterolemia, unspecified, R73.03 - Prediabetes Comprehensive [place]. Panel Fast 1 Year E78.00 - Pure hypercholesterolemia, unspecified, R73.03 - Prediabetes Microalbumin, Random (w Creat) 1 Year E78.00 - Pure hypercholesterolemia, unspecified, R73.03 - Prediabetes Patient Instructions: Benefiber over the counter up to 3 times per day Add in flaxseed or lakesha seeds
[2025-02-02 09:03] VITALS: BP 102/66; PULSE 65; RESP 12; TEMP 36.2; O2SAT 99; BMI 25.5
== END 2025-02-02 09:31 | disposition home or self-care (01) ==
LOC: HO.HMCFM 08:50
PROVIDERS: PCP Nurse Practitioner Family; Visit Provider Nurse Practitioner Family
DX: E78.00 Pure hypercholesterolemia, unspecified (principal); R73.03 Prediabetes; Z91.89 Other specified personal risk factors, not elsewhere classified

== ENCOUNTER → 2025-02-02 08:49 | Outpatient (BNVA) | payer BC, SELFPAY | PROVIDERS: PCP Nurse Practitioner Family; Visit Provider Nurse Practitioner Family | DX: R73.03 Prediabetes (principal); E78.00 Pure hypercholesterolemia, unspecified; Z91.89 Other specified personal risk factors, not elsewhere classified | CPT/HCPCS: 96127 ==

== ENCOUNTER 2025-02-28 14:58 | Outpatient (REF) | payer BC, SELFPAY ==
--- NOTE | ~2025-02-28 | US_ITS ---
EXAMINATION: US SCROTUM HISTORY: N50.812 - Left testicular pain. COMPARISON: There are no prior studies available for comparison. FINDINGS: Real-time grayscale ultrasound imaging of the scrotum was performed. Color and Doppler imaging of the testicles with waveform spectral analysis. RIGHT TESTICLE: The right testis measures 4.7 x 1.9 x 2.5 cm and demonstrates normal homogeneous echotexture. No masses are seen. The right testis demonstrates normal color Doppler flow. No torsion. RIGHT EPIDIDYMIS: Normal in size, shape, and vascularity. There is a minimally complex 3 x 2 x 2 mm cyst in the right epididymal head with septation. LEFT TESTICLE: The left testis measures 4.6 x 1.9 x 2.4 cm and demonstrates normal homogeneous echotexture. No masses are seen. The left testis demonstrates normal color Doppler flow. No torsion. LEFT EPIDIDYMIS: Normal in size, shape, and vascularity. VARICOCELE: None. HYDROCELE: No significant hydrocele is seen. OTHER COMMENTS: None. US/US scrotum IMPRESSION: Small right epididymal head cyst measuring 2 x 3 mm. Otherwise unremarkable exam. Electronically signed by: Anel Black MD 02/28/2025 04:03 PM EDT
== END 2025-02-28 14:59 | disposition home or self-care (01) ==
LOC: HO.US 14:58
PROVIDERS: PCP Nurse Practitioner Family; Visit Provider Nurse Practitioner Family
DX: N50.812 Left testicular pain (principal)
CPT/HCPCS: 76870

== ENCOUNTER → 2025-02-28 14:59 | Outpatient (BNV) | payer BC, SELFPAY | PROVIDERS: PCP Nurse Practitioner Family; Visit Provider Radiology Diagnostic Radiology | DX: N50.812 Left testicular pain (principal) | CPT/HCPCS: 76870 ==